=== PATIENT | male | born 1950 | race Two or more races ===

== ENCOUNTER 2018-05-06 16:36 | Emergency (ER) | payer MEDICARE, OTHER ==
--- NOTE | 2018-05-06 17:01 | ED Physician Documentation ---
General Adult - HISTORIAN Historian: patient - HPI Stated Complaint: ankle pain Chief Complaint: General Adult Onset: hours Timing: still present Severity: moderate Further Comments: yes (Pt is a 68 yo male with L ankle pain. Pt wears b/l ankle braces and has hx DM, HTN, CHF. Pain occurred spontaneously when pt stood from sitting. Little pain when not bearing weight.) - ROS CONST: no problems EYES/ENT: none CVS/RESP: none GI/: none MS/SKIN/LYMPH: joint pain (L ankle), ankle swelling (L) - PAST HX Past History: other (CHF, DM, HTN) - SOCIAL HX Smoking History: chew - FAMILY HX Family History: No - REVIEWED ASSESSMENTS Nursing Assessment Reviewed: Yes Vitals Reviewed: Yes Progress - Progress Progress: X-ray L ankle: There is soft tissue swelling surrounding the left ankle. Destructive process of the articular surface of the tibia and the left os talus and large bony fragments medially with what appear to be vertical an old fracture of the medial malleolus . Significant vascular calcification is noted. Marginal spurs are seen . Differential diagnosis would include : Charcot joint, Diabetic arthropathies, sarcoidosis, posttraumatic osteoarthrosis, rheumatoid arthritis, psoriasis arthritis. Impression: Soft tissue swelling with destructive process as above described. Destructive process of L ankle with bony fragments. Follow up with your Orthopedic Doctor in am. Walking boot Crutches. Pt declines pain meds. General Adult Physical Exam - PHYSICAL EXAM GENERAL APPEARANCE: mild distress NECK: normal inspection, supple RESPIRATORY: no resp distress, chest non-tender, breath sounds normal CVS: reg rate & rhythm, heart sounds normal BACK: normal inspection SKIN: other (chronic skin changes L leg) EXTREMITIES: tenderness (medial L ankle with swelling) NEURO: oriented X3, motor nml, sensation nml Discharge Clincal Impression: destructive process of L ankle Referrals: Tevin Knowles MD [REFERRING] - 2 Days Condition: Stable Disposition: 01 HOME, SELF-CARE Decision to Admit: NO Decision Time: 18:30
[2018-05-06 17:26] LABS: BASOPHILS % 0.3 (0.0-1.5); EOSINOPHILS % 3.7 % (0.0-6.8); MEAN CORPUSCULAR HEMOGLOBIN 33.4 pg (28.0-34.0); MONOCYTES % 11.2 % (0.0-11.0); NEUTROPHILS # 4.5 # k/uL (1.4-7.7)
[2018-05-06 17:38] LABS: eGFR (Non-African) 0
--- NOTE | 2018-05-06 17:44 | Diagnostic Imaging Report ---
HANNAH GENAO [facility] [id number] [facility] [address] [address] Report Submission Date: May 06, 2018 5:43:58 PM CDT Patient Study Name: PITA MONROY Date: May 06, 2018 5:12:53 PM CDT Modality Type: DX Gender: M Description: LOWER EXTREMITY : 52 Institution: [facility] Physician: HANNAH GENAO Left ankle 3 views Clinical history: Pain and swelling Prior films are not available for comparison There is soft tissue swelling surrounding the left ankle. Destructive process of the articular surface of the tibia and the left os talus and large bony fragments medially with what appear to be vertical an old fracture of the medial malleolus . Significant vascular calcification is noted. Marginal spurs are seen . Differential diagnosis would include : Charcot joint, Diabetic arthropathies, sarcoidosis, posttraumatic osteoarthrosis, rheumatoid arthritis, psoriasis arthritis . Impression: Soft tissue swelling with destructive process as above described Electronically signed on May 06, 2018 5:43:58 PM CDT by: Alirio PEREA
[2018-05-06 18:35] VITALS: BP 164/81
== END 2018-05-06 18:25 | disposition home or self-care (01) ==
LOC: ED 16:36
DX: M25.572 Pain in left ankle and joints of left foot (principal); R60.0 Localized edema; E11.9 Type 2 diabetes mellitus without complications; Z86.79 Personal history of other diseases of the circulatory system
CPT/HCPCS: 73610; 80053; 84550; 85025; 99282